=== PATIENT | female | born 1970 | race Caucasian/White ===

== ENCOUNTER 2023-06-09 11:31 | Emergency (ER) | payer MEDICAID ==
[~2023-06-09] VITALS: Ht 165.1 cm; Wt 73.0 kg
[2023-06-09 11:38] VITALS: BP 143/90; TEMP 98.3; O2SAT 98
[2023-06-09 11:43] VITALS: PULSE 82; RESP 20
[2023-06-09] MEDS ORDERED: BACITRACIN ZINC OINT UDPKT TOP ONE (12:15)
[2023-06-09] MEDS ORDERED: TETANUS, DIPHTHERIA, PERTUSSIS VAC/PF 0.5ML (>10YR OLD) IM ONE ×2 (12:15→16:15)
[2023-06-09] MEDS ORDERED: LIDOCAINE HCL 1% 20ML VIAL (Pyxis) INJ INFIL ONE (13:45)
[2023-06-09] MEDS ORDERED: AMOX1TAB16 MT (15:56)
[2023-06-09] MEDS ORDERED: LIDOCAINE HCL 1% 20ML VIAL (Pyxis) INJ INFIL NR (16:15)
[2023-06-09] MEDS ORDERED: BACITRACIN ZINC OINT UDPKT TOP NR (16:15)
== END 2023-06-09 19:39 | disposition home or self-care (01) ==
LOC: ER 12:41
DX: S91.012A Laceration without foreign body, left ankle, initial encounter (principal); X58.XXXA Exposure to other specified factors, initial encounter; Y93.89 Activity, other specified; Y92.89 Other specified places as the place of occurrence of the external cause; Y99.8 Other external cause status
CPT/HCPCS: 73620; 90715; 12004; 90471; 99283; J3490; Z7610

== ENCOUNTER 2023-06-21 15:21 | Emergency (ER) | payer SELFPAY ==
[~2023-06-21] VITALS: Ht 147.3 cm; Wt 73.0 kg
[~2023-06-21 15:21] MED LIST: AMOX1TAB16 MT
[2023-06-21 15:35] VITALS: BP 152/93; TEMP 98.7; O2SAT 99
[2023-06-21 15:36] VITALS: PULSE 100
== END 2023-06-21 16:44 | disposition home or self-care (01) ==
LOC: ER 15:38
DX: S91.011D Laceration without foreign body, right ankle, subsequent encounter (principal); I10 Essential (primary) hypertension; X58.XXXD Exposure to other specified factors, subsequent encounter
CPT/HCPCS: 99281; Z7610